=== PATIENT | female | born 1955 | race African-American/Black ===

== ENCOUNTER 2021-01-26 08:02 | Emergency (ER) | payer OTHER ==
[~2021-01-26] VITALS: Ht 165.1 cm; Wt 69.0 kg
[2021-01-26] MEDS ORDERED: INSULIN (08:05)
[2021-01-26] MEDS ORDERED: ACETAMINOPHEN 325MG TABLET PO ONE (08:30)
[2021-01-26 08:45] LABS: BASOPHILS % 0.4 % (0.0-2.0); EOSINOPHILS % 3.4 % (0.0-5.0); HEMATOCRIT. 39.8 % (36.0-48.0); HEMOGLOBIN. 12.9 g/dL (12.0-16.0); LYMPHOCYTES % 16.9 % (20.0-50.0); MEAN CORPUSCULAR HEMOGLOBIN 28.7 pg (28.0-32.0); MEAN CORPUSCULAR VOLUME 88.9 fL (81.0-99.0); MEAN PLATELET VOLUME 10.6 fl (7.4-10.4); MONOCYTES % 11.6 % (2.0-8.0); NEUTROPHILS % 67.7 % (40.0-76.0); PLATELET 189 x1000/uL (130-400); RED BLOOD CELL COUNT 4.48 mill/uL (4.2-5.4); RED CELL DISTRIBUTION WIDTH 16.4 % (11.6-14.6)
[2021-01-26 08:54] LABS: CHLORIDE 105 mEq/L (98-107)
[2021-01-26 08:58] LABS: ETHANOL BLOOD < 10 mg/dL
[2021-01-26] MEDS ORDERED: MORPHINE SULFATE 2 MG/ML CPJ (NOT FOR IM USE) IV SCH (10:30)
[2021-01-26] MEDS ORDERED: HYDROMORPHONE HCL/PF 2MG/ML CPJ IV ONE ×2 (12:15→16:15)
[2021-01-26] MEDS ORDERED: SODIUM CHLORIDE 0.9% 500 ML IV ONE (14:15)
[2021-01-26] MEDS: ONDANSETRON HCL 4MG/2ML INJ IV ONE ×2 (14:50→15:10)
[2021-01-26 16:38] LABS: *AMPHETAMINES SCREEN URINE NEGATIVE (NEGATIVE); *BARBITURATES SCREEN URINE NEGATIVE (NEGATIVE); *BENZODIAZEPINES SCREEN URINE NEGATIVE (NEGATIVE); CANNABINOID URINE SCREEN NEGATIVE (NEGATIVE)
[2021-01-26 16:39] LABS: *COCAINE SCREEN URINE NEGATIVE (NEGATIVE); METHADONE URINE SCREEN NEGATIVE (NEGATIVE); OPIATES URINE SCREEN PRESUMTIVE POSITIVE (NEGATIVE)
[2021-01-26 16:41] LABS: PHENCYCLIDINE URINE SCREEN NEGATIVE (NEGATIVE)
[2021-01-26 20:25] VITALS: BP 121/73
== END 2021-01-26 20:26 | disposition short-term general hospital (02) ==
LOC: ER 08:06
DX: S82.291A Other fracture of shaft of right tibia, initial encounter for closed fracture (principal); W18.39XA Other fall on same level, initial encounter; Y93.89 Activity, other specified; Y92.89 Other specified places as the place of occurrence of the external cause; Y99.8 Other external cause status; E11.9 Type 2 diabetes mellitus without complications; I10 Essential (primary) hypertension; Z87.891 Personal history of nicotine dependence; Z20.822 Contact with and (suspected) exposure to COVID-19
CPT/HCPCS: 36415; 70450; 71045; 73560; 73590; 80053; 80305; 80320; 82962; 83880; 84484; 85025; 87426; 93005; 96374; 96375; 96376; 99285; J1170; J2270; J2405; J7040; Z7610; G0480

== ENCOUNTER 2021-07-06 10:45 | Emergency (ER) | payer MEDICAID, MEDICARE, OTHER ==
[~2021-07-06] VITALS: Ht 162.6 cm; Wt 54.0 kg
[~2021-07-06 10:45] MED LIST: ASPI-1406 MT; ATOR20TA PO; INSU100V37 SQ; LANTUSUD SUBCUT; LEVO25TA7 PO
[2021-07-06] MEDS ORDERED: HYDROCODONE/ACETAMINOPHEN 5/325MG TABLET PO ONE (11:30)
[2021-07-06 12:13] LABS: BASOPHILS % 0.4 % (0.0-2.0); EOSINOPHILS % 2.1 % (0.0-5.0); HEMATOCRIT. 40.5 % (36.0-48.0); HEMOGLOBIN. 13.3 g/dL (12.0-16.0); LYMPHOCYTES % 17.6 % (20.0-50.0); MEAN CORPUSCULAR HEMOGLOBIN 29.7 pg (28.0-32.0); MEAN CORPUSCULAR VOLUME 90.4 fL (81.0-99.0); MEAN PLATELET VOLUME 10.4 fl (7.4-10.4); MONOCYTES % 7.9 % (2.0-8.0); PLATELET 252 x1000/uL (130-400); RED BLOOD CELL COUNT 4.48 mill/uL (4.2-5.4); RED CELL DISTRIBUTION WIDTH 16.3 % (11.6-14.6)
[2021-07-06 12:14] LABS: CHLORIDE 109 mEq/L (98-107)
[2021-07-06 12:18] LABS: C REACTIVE PROTEIN QUANT 0.8 mg/L (0.0-3.0)
[2021-07-06 14:26] VITALS: BP 145/68
== END 2021-07-06 15:06 | disposition home or self-care (01) ==
LOC: ER 11:03
DX: M25.561 Pain in right knee (principal); I10 Essential (primary) hypertension; E11.9 Type 2 diabetes mellitus without complications; E78.00 Pure hypercholesterolemia, unspecified; Z79.899 Other long term (current) drug therapy
CPT/HCPCS: 36415; 73562; 80053; 85025; 85651; 86140; 99284

== ENCOUNTER 2023-06-11 16:22 | Emergency (ER) | payer MEDICARE, MEDICAID ==
[~2023-06-11] VITALS: Ht 157.5 cm; Wt 60.0 kg
[~2023-06-11 16:22] MED LIST changes: -INSU100V37 SQ; +INSU100V43 SQ
[2023-06-11 16:29] VITALS: TEMP 98.2; O2SAT 99
[2023-06-11 17:11] LABS: BASOPHILS % 0.4 % (0.0-2.0); EOSINOPHILS % 0.6 % (0.0-5.0); HEMATOCRIT. 33.9 % (36.0-48.0); HEMOGLOBIN. 11.3 g/dL (12.0-16.0); LYMPHOCYTES % 17.3 % (20.0-50.0); MEAN CORPUSCULAR HEMOGLOBIN 30.4 pg (28.0-32.0); MEAN CORPUSCULAR HGB CONC 33.4 g/dL (31.0-37.0); MEAN CORPUSCULAR VOLUME 91.1 fL (81.0-99.0); MEAN PLATELET VOLUME 10.3 fl (7.4-10.4); MONOCYTES % 10.7 % (2.0-8.0); PLATELET 265 x1000/uL (130-400); RED BLOOD CELL COUNT 3.72 mill/uL (4.2-5.4); WHITE BLOOD COUNT 9.8 x1000/uL (4.5-11.0)
[2023-06-11 17:29] LABS: ALANINE AMINOTRANSFERASE 10 IU/L (10-49); ASPARTATE AMINOTRANSFERASE 26 IU/L (<34); BILIRUBIN TOTAL 0.3 mg/dL (0.1-1.0); CARBON DIOXIDE 23 mEq/L (21-32); CHLORIDE 96 mEq/L (98-107); GLUCOSE 310 mg/dL (70-105); POTASSIUM 3.4 mEq/L (3.5-5.1); PROTEIN TOTAL 7.4 g/dL (6.0-8.3); SODIUM 128 mEq/L (136-145); TROPONIN I HIGH SENSITIVITY 5 ng/L (3.0-34); UREA NITROGEN BLOOD 27 mg/dL (9-23)
[2023-06-11 22:12] LABS: CLARITY URINE CLEAR (CLEAR); COLOR URINE YELLOW (YELLOW); GLUCOSE URINE 3+ (NEGATIVE); KETONES URINE TRACE (NEGATIVE); LEUKOCYTE ESTERASE URINE NEGATIVE (NEGATIVE); NITRITE URINE NEGATIVE (NEGATIVE); OCCULT BLOOD URINE NEGATIVE (NEGATIVE); PH URINE 5.5 (4.5-8.0); PROTEIN URINE NEGATIVE (NEGATIVE); SPECIFIC GRAVITY URINE 1.013 (1.005-1.030); UROBILINOGEN URINE 0.2 E.U./dL (0.2-1.0)
[2023-06-11] MEDS ORDERED: POLY17PO3 MT (22:57)
[2023-06-11] MEDS ORDERED: LEVO750T68 MT (22:57)
[2023-06-11] MEDS ORDERED: METR-167 MT (22:57)
[2023-06-11 23:18] VITALS: BP 120/66; PULSE 86; RESP 18
[2023-06-11 23:19] LABS: BACTERIA URINE 1+; RBC URINE 0-2 /hpf (0-2); SQUAMOUS EPITHELIAL CELL URINE 1+ /lpf (RARE/1+); WBC URINE 0-2 /hpf (0-2)
== END 2023-06-11 23:24 | disposition home or self-care (01) ==
LOC: ER 16:38
DX: K57.92 Diverticulitis of intestine, part unspecified, without perforation or abscess without bleeding (principal); E11.9 Type 2 diabetes mellitus without complications; E78.00 Pure hypercholesterolemia, unspecified; I10 Essential (primary) hypertension; Z90.710 Acquired absence of both cervix and uterus; Z79.899 Other long term (current) drug therapy
CPT/HCPCS: 36415; 74176; 80053; 81003; 83880; 84484; 85025; 93005; 99284

== ENCOUNTER 2024-02-01 14:31 | Inpatient (IN) | payer MEDICARE, MEDICAID ==
[~2024-02-01] VITALS: Ht 162.6 cm; Wt 49.9 kg
[~2024-02-01 14:31] MED LIST changes: +LEVO750T68 MT; +METR-167 MT; +POLY17PO3 MT
[2024-02-01 15:51] LABS: BASOPHILS % 0.4 % (0.0-2.0); EOSINOPHILS % 0.3 % (0.0-5.0); HEMATOCRIT. 38.6 % (36.0-48.0); HEMOGLOBIN. 12.2 g/dL (12.0-16.0); LYMPHOCYTES % 11.2 % (20.0-50.0); MEAN CORPUSCULAR HEMOGLOBIN 28.6 pg (28.0-32.0); MEAN CORPUSCULAR HGB CONC 31.7 g/dL (31.0-37.0); MEAN CORPUSCULAR VOLUME 90.2 fL (81.0-99.0); MEAN PLATELET VOLUME 9.6 fl (7.4-10.4); MONOCYTES % 7.6 % (2.0-8.0); NEUTROPHILS % 80.5 % (40.0-76.0); PLATELET 359 x1000/uL (130-400); RED BLOOD CELL COUNT 4.28 mill/uL (4.2-5.4); RED CELL DISTRIBUTION WIDTH 16.5 % (11.6-14.6)
[2024-02-01 15:58] LABS: POTASSIUM 5.3 mEq/L (3.5-5.1)
[2024-02-01 15:59] LABS: CALCIUM 10.1 mg/dL (8.7-10.4)
[2024-02-01 16:07] LABS: CREATININE 2.7 mg/dL (0.6-1.0)
[2024-02-01] MEDS: SODIUM CHLORIDE 0.9% 1,000 ML IV ONE ×2 (16:15→20:34)
[2024-02-01] MEDS: BLOOD SUGAR DIAGNOSTIC STRIP TEST SCH (16:15)
[2024-02-01] MEDS ORDERED: INSULIN REGULAR (DRIP) 100 UNITS in SODIUM CHLORIDE 0.9% 99 ML IV SCH (16:15)
[2024-02-01] MEDS ORDERED: BLOOD SUGAR DIAGNOSTIC STRIP TEST PRN (16:15)
[2024-02-01 16:45] LABS: TROPONIN I HIGH SENSITIVITY 5 ng/L (3.0-34)
[2024-02-01 16:46] LABS: BETA HYDROXYBUTYRATE 10.8 mMol/L (0.0-0.3)
[2024-02-01 17:12] LABS: CLARITY URINE CLEAR (CLEAR); COLOR URINE YELLOW (YELLOW); GLUCOSE URINE 3+ (NEGATIVE); KETONES URINE 1+ (NEGATIVE); LEUKOCYTE ESTERASE URINE NEGATIVE (NEGATIVE); NITRITE URINE NEGATIVE (NEGATIVE); OCCULT BLOOD URINE NEGATIVE (NEGATIVE); PROTEIN URINE NEGATIVE (NEGATIVE); SPECIFIC GRAVITY URINE 1.019 (1.005-1.030); UROBILINOGEN URINE 0.2 E.U./dL (0.2-1.0)
[2024-02-01 17:28] LABS: BACTERIA URINE 1+; SQUAMOUS EPITHELIAL CELL URINE 1+ /lpf (RARE/1+)
[2024-02-01 17:29] LABS: RBC URINE 0-2 /hpf (0-2); WBC URINE 0-2 /hpf (0-2)
[2024-02-01] MEDS: INSULIN REGULAR 100U/100ML PMX 100 ML IV SCH (18:34)
[2024-02-01] MEDS ORDERED: INSULIN REGULAR (DRIP) 100 UNITS in SODIUM CHLORIDE 0.9% 100 ML IV SCH (20:15)
[2024-02-01 20:34] LABS: BG BASE EXCESS -14.1 mmol/L (-2.0-3.0); BG CARBOXYHEMOGLOBIN 2.2 % (0.5-1.5); BG DEOXYHEMOGLOBIN 3.9 % (0.0-5.0); BG FRACTION INSPIRED OXYGEN 21; BG HCO3 ACT 11.5 mmol/L (21.0-28.0); BG METHEMOGLOBIN 0.3 % (0.5-1.5); BG OXYHEMOGLOBIN 93.6 % (94.0-98.0); BG PCO2 27.1 mmHg (32.0-45.0); BG PH 7.244 (7.350-7.450); BG PO2 86.4 mmHg (83.0-108.0); BG SAMPLE SITE LEFT RADIAL; BG TOTAL HEMOGLOBIN 15.2 g/dL (12.0-16.0); BG VENT MODE ROOM AIR
[2024-02-02] MEDS: DEXTROSE 50% WATER 50ML SYRINGE IV PRN (00:30)
[2024-02-02] MEDS ORDERED: KCL 20MEQ/100ML PREMIX 100 ML IV PRN (01:15)
[2024-02-02] MEDS: BLOOD SUGAR DIAGNOSTIC STRIP TEST SCH ×2 (01:15→06:52)
[2024-02-02] MEDS ORDERED: MAGNESIUM 2 G PREMIX 50 ML IV PRN (01:15)
[2024-02-02 01:17] LABS: CALCIUM 8.8 mg/dL (8.7-10.4); CARBON DIOXIDE 22 mEq/L (21-32); CHLORIDE 103 mEq/L (98-107); CREATININE 2.1 mg/dL (0.6-1.0); GLUCOSE 231 mg/dL (70-105); PHOSPHORUS 2.7 mg/dL (2.5-4.9); POTASSIUM 3.8 mEq/L (3.5-5.1); SODIUM 136 mEq/L (136-145); UREA NITROGEN BLOOD 31 mg/dL (9-23)
[2024-02-02] MEDS: DEXT 5%/0.9% NACL 1,000 ML IV SCH (01:47)
[2024-02-02 05:41] LABS: BG BASE EXCESS -5.2 mmol/L (-2.0-3.0); BG CARBOXYHEMOGLOBIN 1.4 % (0.5-1.5); BG DEOXYHEMOGLOBIN 4.7 % (0.0-5.0); BG FRACTION INSPIRED OXYGEN 21; BG HCO3 ACT 18.9 mmol/L (21.0-28.0); BG METHEMOGLOBIN 0.3 % (0.5-1.5); BG OXYGEN SATURATION 95.2 % (94.0-98.0); BG OXYHEMOGLOBIN 93.6 % (94.0-98.0); BG PH 7.376 (7.350-7.450); BG PO2 73.8 mmHg (83.0-108.0); BG TOTAL HEMOGLOBIN 15.8 g/dL (12.0-16.0); BG VENT MODE ROOM AIR
[2024-02-02] MEDS: INSULIN LISPRO 100 UNITS/ML SUBCUT SCH (06:55)
[2024-02-02] MEDS: PANTOPRAZOLE SODIUM 40 MG/VIAL IV SCH (09:00)
[2024-02-02] MEDS: INSULIN GLARGINE 100 UNITS/ML SUBCUT SCH (09:59)
[2024-02-02 11:24] LABS: CARBON DIOXIDE 27 mEq/L (21-32); CHLORIDE 103 mEq/L (98-107); POTASSIUM 4.1 mEq/L (3.5-5.1); SODIUM 136 mEq/L (136-145)
[2024-02-02 11:25] LABS: CALCIUM 9.6 mg/dL (8.7-10.4)
[2024-02-02 11:30] LABS: CREATININE 1.7 mg/dL (0.6-1.0); GLUCOSE 110 mg/dL (70-105); UREA NITROGEN BLOOD 27 mg/dL (9-23)
[2024-02-02 11:32] LABS: PHOSPHORUS 2.2 mg/dL (2.5-4.9)
[2024-02-02 15:47] LABS: CHLORIDE 105 mEq/L (98-107); POTASSIUM 3.6 mEq/L (3.5-5.1); SODIUM 137 mEq/L (136-145)
[2024-02-02 15:48] LABS: CARBON DIOXIDE 24 mEq/L (21-32)
[2024-02-02 15:56] LABS: PHOSPHORUS 2.1 mg/dL (2.5-4.9)
[2024-02-02 16:03] LABS: LACTIC ACID 4.2 mmol/L (0.4-2.0)
[2024-02-02 16:25] LABS: D-DIMER 1.58 mg/L FEU (<0.50); INR 0.9; PROTHROMBIN TIME 10.6 sec (9.6-11.0)
[2024-02-02 20:00] VITALS: BP 109/61; PULSE 71; RESP 18; TEMP 36.9474; O2SAT 99
[2024-02-02 22:35] VITALS: BP 111/71; PULSE 78; RESP 18; TEMP 36.5848
[2024-02-03] VITALS: BP_SYST 131; BP_SYST 134; BP_DIAS 60; BP_DIAS 68; PULSE 66; RESP 18; TEMP 36.44736; O2SAT 100
[2024-02-03] MEDS ORDERED: AMLO10TA80 PO (00:05)
[2024-02-03] MEDS ORDERED: BENA40TA91 PO (00:05)
[2024-02-03] MEDS ORDERED: LEVO50TA8 PO (00:05)
[2024-02-03] MEDS ORDERED: OMEP20CA14 PO (00:05)
[2024-02-03] MEDS ORDERED: NPH,100I SUBCUT (00:05)
[2024-02-03] MEDS ORDERED: HYDR453.3 TP (00:05)
[2024-02-03] MEDS ORDERED: FENO48TA10 PO (00:05)
[2024-02-03] MEDS ORDERED: HYDR-3735 PO (00:05)
[2024-02-03] MEDS ORDERED: FURO20TA4 PO (00:05)
[2024-02-03] MEDS ORDERED: DAPA5TAB PO (00:05)
[2024-02-03 04:00] VITALS: BP 131/72; PULSE 56; RESP 18; TEMP 36.55848; O2SAT 99
[2024-02-03 08:00] VITALS: BP 130/79; PULSE 79; RESP 18; TEMP 37.00296; O2SAT 100
[2024-02-03 08:27] LABS: CHLORIDE 104 mEq/L (98-107); POTASSIUM 4.1 mEq/L (3.5-5.1); SODIUM 141 mEq/L (136-145)
[2024-02-03 08:28] LABS: CARBON DIOXIDE 30 mEq/L (21-32)
[2024-02-03 08:30] LABS: BASOPHILS % 0.6 % (0.0-2.0); EOSINOPHILS % 2.3 % (0.0-5.0); HEMATOCRIT. 37.9 % (36.0-48.0); HEMOGLOBIN. 12.2 g/dL (12.0-16.0); LYMPHOCYTES % 24.7 % (20.0-50.0); MEAN CORPUSCULAR HEMOGLOBIN 27.7 pg (28.0-32.0); MEAN CORPUSCULAR HGB CONC 32.2 g/dL (31.0-37.0); MEAN PLATELET VOLUME 9.8 fl (7.4-10.4); MONOCYTES % 8.6 % (2.0-8.0); NEUTROPHILS % 63.8 % (40.0-76.0); PLATELET 319 x1000/uL (130-400); RED CELL DISTRIBUTION WIDTH 15.8 % (11.6-14.6); WHITE BLOOD COUNT 9.4 x1000/uL (4.5-11.0)
[2024-02-03 08:31] LABS: INR 0.9; PROTHROMBIN TIME 10.3 sec (9.6-11.0)
[2024-02-03 08:33] LABS: ALANINE AMINOTRANSFERASE < 7 IU/L (10-49); CREATININE 1.3 mg/dL (0.6-1.0); GLUCOSE 63 mg/dL (70-105); PROTEIN TOTAL 7.2 g/dL (6.0-8.3); TRIGLYCERIDE 112 mg/dL (0-150); UREA NITROGEN BLOOD 22 mg/dL (9-23)
[2024-02-03 08:34] LABS: ALBUMIN 4.1 g/dL (3.2-4.8); LDL CHOLESTEROL 101 mg/dL (5-100)
[2024-02-03 08:35] LABS: ASPARTATE AMINOTRANSFERASE 21 IU/L (<34); BILIRUBIN TOTAL 0.3 mg/dL (0.1-1.0); CHOLESTEROL 178 mg/dL (<200); HDL CHOLESTEROL 61 mg/dL (>65); PHOSPHORUS 2.3 mg/dL (2.5-4.9)
[2024-02-03 08:39] LABS: BILIRUBIN DIRECT < 0.1 mg/dL (<=3.0)
[2024-02-03 12:00] VITALS: BP_SYST 104; BP_SYST 137; BP_SYST 89; BP_DIAS 42; BP_DIAS 69; BP_DIAS 78; PULSE 57; RESP 18; TEMP 36.89184; O2SAT 100
[2024-02-03 16:00] VITALS: BP 98/55; PULSE 65; RESP 18; TEMP 36.44736; O2SAT 97
[2024-02-03 20:00] VITALS: BP 136/70; PULSE 60; RESP 16; TEMP 36.83628; O2SAT 99
[2024-02-03] MEDS: ATORVASTATIN CALCIUM 40MG TABLET PO SCH (22:00)
[2024-02-04] VITALS: BP 115/66; PULSE 61; RESP 18; TEMP 36.50292; O2SAT 99
[2024-02-04] MEDS: DEXTROSE 50% WATER 50ML SYRINGE IV PRN (01:18)
[2024-02-04 04:00] VITALS: BP 115/74; PULSE 62; RESP 16; TEMP 36.6696; O2SAT 100
[2024-02-04 08:00] VITALS: BP_SYST 106; BP_SYST 119; BP_SYST 122; BP_DIAS 69; BP_DIAS 72; BP_DIAS 76; PULSE 62; RESP 18; TEMP 35.89176; O2SAT 100
[2024-02-04 08:11] LABS: BASOPHILS % 0.5 % (0.0-2.0); EOSINOPHILS % 2.3 % (0.0-5.0); HEMATOCRIT. 38.3 % (36.0-48.0); HEMOGLOBIN. 12.2 g/dL (12.0-16.0); LYMPHOCYTES % 31.9 % (20.0-50.0); MEAN CORPUSCULAR VOLUME 90.7 fL (81.0-99.0); MEAN PLATELET VOLUME 9.5 fl (7.4-10.4); MONOCYTES % 11.9 % (2.0-8.0); NEUTROPHILS % 53.4 % (40.0-76.0); PLATELET 291 x1000/uL (130-400); RED BLOOD CELL COUNT 4.22 mill/uL (4.2-5.4); RED CELL DISTRIBUTION WIDTH 16.7 % (11.6-14.6); WHITE BLOOD COUNT 8.1 x1000/uL (4.5-11.0)
[2024-02-04 08:16] LABS: CALCIUM 9.2 mg/dL (8.7-10.4)
[2024-02-04 08:21] LABS: CREATININE 1.1 mg/dL (0.6-1.0)
[2024-02-04 12:00] VITALS: BP 116/65; PULSE 64; RESP 18; TEMP 36.114; O2SAT 100
[2024-02-04 16:00] VITALS: BP 135/79; PULSE 62; RESP 18; TEMP 36.114; TEMP 36.11400; O2SAT 100
[2024-02-04 18:06] VITALS: BP 135/79; PULSE 62; TEMP 97; O2SAT 100
[2024-02-05] MEDS ORDERED: INSULIN GLARGINE 100 UNITS/ML SUBCUT SCH (10:00)
== END 2024-02-04 19:05 | disposition home or self-care (01) | DRG 562 ==
LOC: ER 14:31 → EDBEDREQ 18:01 → EDBEDREQTM 18:01 → EDBEDREQSVC 02-02 01:57 → 5WST 02-02 05:45 → 7WST 02-02 23:22
PROVIDERS: ADMIT Internal Medicine; ATTEND Internal Medicine
DX: S52.591A Other fractures of lower end of right radius, initial encounter for closed fracture (principal); E11.10 Type 2 diabetes mellitus with ketoacidosis without coma; E87.1 Hypo-osmolality and hyponatremia; E11.22 Type 2 diabetes mellitus with diabetic chronic kidney disease; Z20.822 Contact with and (suspected) exposure to COVID-19; E87.5 Hyperkalemia; I12.9 Hypertensive chronic kidney disease with stage 1 through stage 4 chronic kidney disease, or unspecified chronic kidney disease; J44.9 Chronic obstructive pulmonary disease, unspecified; N18.9 Chronic kidney disease, unspecified; M54.2 Cervicalgia; E78.5 Hyperlipidemia, unspecified; W18.39XA Other fall on same level, initial encounter; Y93.89 Activity, other specified; Y92.89 Other specified places as the place of occurrence of the external cause; Z79.899 Other long term (current) drug therapy; Y99.8 Other external cause status
CPT/HCPCS: 36415; 36600; 71045; 72192; 73030; 73110; 73130; 80048; 80051; 80061; 80076; 81003; 82010; 82375; 82805; 82962; 83036; 83605; 83735; 83880; 83930; 84100; 84145; 84484; 85025; 85379; 87426; 93005; 97161; 99291; A4565; C1893; J1815; J2470; J7030